=== PATIENT | female | born 1935 | race Caucasian/White ===

== ENCOUNTER → 2016-06-12 | Outpatient (CLI) | payer MEDICARE, OTHER ==
[~2016-06-12] MED LIST: ASPI-860 PO; ATN25T PO; LSNP10T PO; METF-473 PO; OMEP20TA PO; RANI150T15 PO; SMV10T PO
--- NOTE | 2016-06-12 17:45 | Diagnostic Imaging Report ---
INDICATION: Chronic neck pain. FINDINGS: AP, odontoid and lateral views were obtained of the cervical spine. The cervical vertebrae are normal in height and alignment. There is no fracture or subluxation. There is disc space narrowing at C4-5 and C5-6 and C6-7 with mild osteophyte formation. There are calcifications in the lateral soft tissues of the neck which may represent plaquing in the carotid bifurcations. IMPRESSION: Degenerative findings in cervical spine as described above with no acute-appearing bony abnormality. Dictated by: Dictated on workstation # [id number]
== END ==
LOC: LAB 13:07
PROVIDERS: ATTEND Internal Medicine
DX: M54.2 Cervicalgia (principal)
CPT/HCPCS: 72040

== ENCOUNTER → 2016-07-07 | Outpatient (CLI) | payer MEDICARE, OTHER ==
--- NOTE | 2016-07-07 12:59 | Diagnostic Imaging Report ---
INDICATION: Fall. Right-sided pain, shortness of air with activity. Exam compared 10/08/2009. No lung contusion, pneumothorax, or hemothorax is found. Air trapping and COPD chronic. Lower thoracic kyphoplasty cement stable. No acute chest wall pathology could be found. COPD and air trapping chronic. IMPRESSION: Stable chronic findings. Dictated by: Dictated on workstation # [id number]
== END ==
LOC: RAD 10:55
PROVIDERS: ATTEND Internal Medicine
DX: R07.81 Pleurodynia (principal)
CPT/HCPCS: 71020